=== PATIENT | female | born 1960 | race Caucasian/White ===

== ENCOUNTER 2017-05-22 06:50 | Day surgery (SDC) | payer OTHER ==
[2017-05-22] MEDS ORDERED: EPINEPHRINE INJ 1 MG/10 ML DISP.SYRIN ONE (07:48)
[2017-05-22] MEDS ORDERED: GLUCAGON,HUMAN RECOMB 1 MG INJ ONE (07:48)
[2017-05-22] MEDS ORDERED: FAMOTIDINE INJ/PF 20 MG/2 ML SDV IV ONE (08:08)
[2017-05-22] MEDS ORDERED: ALBUTEROL SULFATE 0.083% NEB 2.5 MG/3 ML AMPUL NEB ONE (08:15)
[2017-05-22 08:25] LABS: HEMATOCRIT 38.3 % (36.0-47.0); HEMOGLOBIN 12.2 g/dL (12.0-15.5); HGB HCT DIFFERENCE -1.7; MEAN CORPUSCULAR HEMOGLOBIN 27.8 pg (27.0-33.4); MEAN CORPUSCULAR HGB CONC 31.9 g/dL (32.0-36.0); MEAN CORPUSCULAR VOLUME 87 fl (80-97); RED BLOOD COUNT 4.39 10^6/uL (3.72-5.28); RED CELL DISTRIBUTION WIDTH 14.4 % (11.5-14.0); WHITE BLOOD COUNT 3.2 10^3/uL (4.0-10.5)
[2017-05-22] MEDS ORDERED: FENTANYL CITRATE INJ/PF 100 MCG/2 ML AMPUL ONE ×2 (08:26→08:27)
[2017-05-22] MEDS ORDERED: MIDAZOLAM 2 MG/2 ML INJ ONE (08:27)
[2017-05-22] MEDS ORDERED: PROPOFOL INJ 200 MG/20 ML VIAL IV ONE ×2 (08:27→09:26)
[2017-05-22 08:49] LABS: ANION GAP 8 (5-19); BLOOD UREA NITROGEN 8 mg/dL (7-20); CALCIUM 9.3 mg/dL (8.4-10.2); CARBON DIOXIDE 22 mmol/L (22-30); CHLORIDE 111 mmol/L (98-107); CREATININE RESULT 0.56 mg/dL (0.52-1.25); GLUCOSE 103 mg/dL (75-110); POTASSIUM 4.3 mmol/L (3.6-5.0); SODIUM 141.3 mmol/L (137-145)
--- NOTE | 2017-05-22 09:42 | Operative Report ---
Operative Report DATE OF SURGERY: 05/22/17 Operative Report: The risks, benefits and alternatives of the procedure including risks of bleeding, perforation requiring surgery are explained to the patient detail and informed consent was obtained. Patient was placed in a left lateral decubital position. Timeout was called. Propofol medications administered. A rectal examination was done which did not reveal any masses, tears or fissures. An Olympus video scope was inserted into the patient's rectum. The scope was carefully advanced all the way to the cecum. The cecum was identified by the usual anatomical landmarks including the ileocecal valve as well as the appendiceal office. Intubation of the terminal ileum is done. The scope was then sequentially pulled back via the rest segments of the colon including the ascending colon, hepatic flexure, transverse colon, splenic flexure, descending colon and finding to the rectosigmoid portions of the colon. Retroflexion maneuver was performed. The risks benefits and alternatives of the procedure explained to the patient in detail and informed consent is obtained. A GIF Olympus video scope was inserted into the patient's mouth and hypopharynx, the esophagus is identified intubated and insufflated, the scope was then advanced through the esophagus stomach and duodenum, retroflexion maneuver is done, the esophagus stomach and first and second portions of the duodenum examined PREOPERATIVE DIAGNOSIS: Chronic diarrhea. Abdominal bloating. Black stools POSTOPERATIVE DIAGNOSIS: Gastritis, minimal biopsies obtained to rule out Helicobacter pylori. Random biopsies taken in the small intestine rule out celiac disease. No ulcers noted. Normal esophagus. Grossly normal mucosa in the colon. Intubation of the terminal ileum is done. Internal hemorrhoids. Biopsies obtained in the terminal ileum to rule out Crohn's. Biopsies obtained on the right side of the colon to rule out lymphocytic, microscopic, collagenous colitis. OPERATION: Colonoscopy with biopsy. EGD with biopsy SURGEON: JESSICA GRIJALVA ANESTHESIA: LMAC TISSUE REMOVED OR ALTERED: As described above COMPLICATIONS: None. ESTIMATED BLOOD LOSS: None. INTRAOPERATIVE FINDINGS: As described above. PROCEDURE: Patient tolerated the procedure well. No immediate postprocedure complications are noted. Patient discharged in good condition. Discharge date 05/22/2017. Discharge diet: Regular. Discharge activity: Regular. 2-3 week follow-up to discuss findings. Patient is instructed to call the office or proceed to the emergency room should there be any further problems or questions. We will wait on biopsies.
[2017-05-22] MEDS ORDERED: DIPHENHYDRAMINE HCL 50 MG/ML VIAL IV PRN (10:27)
[2017-05-22] MEDS ORDERED: PROMETHAZINE HCL INJ 25 MG/1 ML VIAL IV PRN (10:27)
[2017-05-22] MEDS ORDERED: FENTANYL CITRATE INJ/PF 100 MCG/2 ML AMPUL IV PRN ×2 (10:27)
[2017-05-22 12:01] VITALS: BP 139/73
--- NOTE | 2017-05-22 20:18 | EKG REPORT ---
SEVERITY:- NORMAL ECG - SINUS RHYTHM : Confirmed by: Bruce Bernstein MD 22-May-2017 20:17:41
== END 2017-05-22 11:15 | disposition home or self-care (01) ==
LOC: OROUT 06:50
PROVIDERS: ATTEND Internal Medicine Gastroenterology
PROC: 0DBB8ZX Excision of Ileum, Via Natural or Artificial Opening Endoscopic, Diagnostic (ICD-10-PCS; 2017-05-22)
PROC: 0DBF8ZX Excision of Right Large Intestine, Via Natural or Artificial Opening Endoscopic, Diagnostic (ICD-10-PCS; 2017-05-22)
PROC: 0DB98ZX Excision of Duodenum, Via Natural or Artificial Opening Endoscopic, Diagnostic (ICD-10-PCS; principal; 2017-05-22 09:00)
PROC: 0DB68ZX Excision of Stomach, Via Natural or Artificial Opening Endoscopic, Diagnostic (ICD-10-PCS; 2017-05-22 09:00)
DX: K29.80 Duodenitis without bleeding (principal); K29.70 Gastritis, unspecified, without bleeding; K64.8 Other hemorrhoids; E03.9 Hypothyroidism, unspecified; J45.909 Unspecified asthma, uncomplicated; F17.210 Nicotine dependence, cigarettes, uncomplicated; Z79.899 Other long term (current) drug therapy; Z88.0 Allergy status to penicillin; Z88.8 Allergy status to other drugs, medicaments and biological substances; Z79.1 Long term (current) use of non-steroidal anti-inflammatories (NSAID)
CPT/HCPCS: 43239; 45380; 36415; 85027; 80048; 88305 ×2; 93005; 93010; J2250; J3010; J1610; J2704; S0028; 740; J0171